=== PATIENT | male | born 1955 | race Caucasian/White ===

== ENCOUNTER 2017-05-28 06:51 | Day surgery (SDC) | payer MEDICAID ==
[~2017-05-28] VITALS: Ht 167.6 cm; Wt 80.3 kg
[2017-05-28] MEDS ORDERED: MIDAZOLAM HCL 5 MG/5 ML VIAL ONE (07:15)
[2017-05-28] MEDS: MIDAZOLAM HCL 5 MG/5 ML VIAL ONE ×2 (08:25→08:28)
[2017-05-28] MEDS: fentaNYL CITRATE/PF 100 MCG/2 ML AMP ONE ×2 (08:25→08:30)
[2017-05-28 14:11] VITALS: BP_SYST 120
== END 2017-05-28 10:00 | disposition home or self-care (01) ==
LOC: SDS 06:51 → SMU 07:50 → SDS 10:00
PROVIDERS: ATTEND Internal Medicine
DX: K31.7 Polyp of stomach and duodenum (principal); D64.9 Anemia, unspecified; K44.9 Diaphragmatic hernia without obstruction or gangrene
CPT/HCPCS: 43239; 88305; J2250; J3010; 88312; 88313